=== PATIENT | female | born 1990 | race Caucasian/White ===

== ENCOUNTER 2017-01-29 18:09 | Inpatient (IN) | payer MEDICAID ==
[~2017-01-29] VITALS: Ht 165.1 cm; Wt 80.3 kg
[2017-01-29 18:34] VITALS: BP 114/57; PULSE 88; RESP 18
[2017-01-29 18:35] VITALS: Ht 165.1 cm; Wt 80.3 kg
--- NOTE | 2017-01-29 19:45 | RADRPT ---
PROCEDURE: OB ultrasound for biophysical profile CLINICAL INDICATION: well-being. Possible oligohydramnios TECHNIQUE: Multiple sonographic images of the gravid uterus performed. The images were reviewed on a PACS workstation. COMPARISON: None FINDINGS: A single live intrauterine is identified with heart rate of 141 bpm. Fet us is in a cephalic presentation. Placenta is located anterior. Biophysical profile: breathing movement = 2/2 tone = 2/2 motion = 2/2 TREVER = 0/2 TREVER = 3.8 cm. IMPRESSION: 1. Single live intrauterine gestation. 2. Biophysical profile = 6/8 due to relatively low amount of amniotic fluid. 3. TREVER = 3.8 cm which is consistent with oligohydramnios.. RPTAT: HMVK .Chang Wasserman MD, MD Date Time Electronically viewed and signed by .Chang Wasserman MD, MD on 01/29/2017 19:44 .K/
--- NOTE | 2017-01-29 21:11 | PN ---
Date/Time of Note Date/Time of Note DATE: 01/29/17 TIME: 20:47 OB Subjective Subjective Subjective 26 yo P0@35.6 wks who was sent with a note from Dr. Romero with oligo Patient has no complaints; good FM, no VB, no LOF, no ctx OB Objective Objective Objective VS WNL Abdomen- gravid, n/t FHT- Cat I [place]- no ctx Abdomen: WNL Accelerations: Accelerations Present Decelerations: No Decelerations Varibility: Moderate Contractions on Admission: None OB Assessment/Plan Other Assessment: 26 yo, r/o ROM, with oligo - reassuring status Other plan: awaiting ROM + result - if pos and patient is PPROM, will induce labor - if neg, will admit to 2 NE and patient to be evaluated by Dr. Romero in the morning. VLADIMIR GALE MD Jan 29, 2017 21:08
[2017-01-29] MEDS ORDERED: PNV91TAB3 PO (22:05)
[2017-01-29] MEDS ORDERED: FOLI0.4T2 PO (22:05)
[2017-01-29] MEDS ORDERED: FER325 PO (22:06)
[2017-01-29] MEDS ORDERED: CALC600T11 PO (22:06)
[2017-01-29] MEDS: LACTATED RINGER'S 1,000 ML IV SCH ×2 (22:21→23:07)
--- NOTE | 2017-01-29 22:49 | TRIAGE ---
OB Triage Datetime Report Generated by CPN: 01/29/2017 22:48 Datetime: 01/29/2017 22:20 Stage of : OB Triage Datetime: 01/29/2017 22:18 Stage of : OB Triage Datetime: 01/29/2017 22:08 Stage of : OB Triage Datetime: 01/29/2017 22:06 Stage of : OB Triage Datetime: 01/29/2017 21:58 Stage of : OB Triage Datetime: 01/29/2017 21:52 Stage of : OB Triage Datetime: 01/29/2017 21:30 Stage of : OB Triage Labor Evaluation Frequency: 0 Monitor Mode: External Pattern: Normal: <= 5 Contractions in 10 Minutes Resting Tone [place]: Relaxed Heart Rate FHR Baseline Rate: 125 Monitor Mode: External US Variability: Moderate 6-25 bpm Accelerations: 15X15 Decelerations: None Category: Category I Pain Assessment Pain Presence: None/Denies Datetime: 01/29/2017 21:25 Vaginal Exam Membrane Status: Intact Datetime: 01/29/2017 20:38 Stage of : OB Triage Datetime: 01/29/2017 20:35 Stage of : OB Triage Datetime: 01/29/2017 20:30 Stage of : OB Triage Labor Evaluation Frequency: 0 (Annotations: UTERINE IRRITABILITY NOED ) Monitor Mode: External Pattern: Normal: <= 5 Contractions in 10 Minutes Resting Tone [place]: Relaxed Heart Rate FHR Baseline Rate: 125 Monitor Mode: External US Variability: Moderate 6-25 bpm Accelerations: 15X15 Decelerations: None Category: Category I Pain Assessment Pain Presence: None/Denies Datetime: 01/29/2017 20:06 Stage of : OB Triage Datetime: 01/29/2017 20:00 Stage of : OB Triage Datetime: 01/29/2017 19:30 Stage of : OB Triage Labor Evaluation Frequency: 0 Monitor Mode: External Pattern: Normal: <= 5 Contractions in 10 Minutes Resting Tone [place]: Relaxed Heart Rate FHR Baseline Rate: 125 Monitor Mode: External US Variability: Moderate 6-25 bpm Accelerations: 15X15 Decelerations: None Category: Category I Pain Assessment Pain Presence: None/Denies Datetime: 01/29/2017 18:59 Labor Evaluation Frequency: 0 Monitor Mode: External Pattern: Normal: <= 5 Contractions in 10 Minutes Resting Tone [place]: Relaxed Heart Rate FHR Baseline Rate: 130 Monitor Mode: External US Variability: Moderate 6-25 bpm Accelerations: 15X15 Decelerations: None Category: Category I Pain Assessment Pain Presence: None/Denies Datetime: 01/29/2017 18:29 Assessment Type: Admission Assessment EGA: 35.6 Maternal Assessment Level of Consciousness: Fully Conscious DTR's/Clonus: DTRs 2+; No Clonus Headache: Denies Blurred Vision: No Respiratory Effort: Unlabored; Regular Rhythm; Equal Expansion Breath Sounds, Left: Clear and Equal Breath Sounds, Right: Clear and Equal Nausea/Vomiting: Denies RUQ Epigastric Pain: Denies Lower Extremities Edema: None Degree: None Upper Extremities Edema: None Degree: None Facial Edema: None Fall Risk Assessment History of Falling: (0) No Secondary Diagnosis: (0) No Ambulatory Aid: (0) Bedrest/Nurse Assist IV Therapy: (0) No Gait: (0) Normal/Bedrest/Immobile Mental Status: (0) Oriented to Own Ability Fall Score: 0 Fall Risk Score Definition: No Risk: No action required Datetime: 01/29/2017 18:27 Time of Arrival: 01/29/2017 17:57 Arrived By: Ambulatory Arrived From: Dr. De La Cruz Chief Complaint: PRESCRIPTION FROM CLINIC FOR R/O OLIGOHYDRAMNIOS. SONO FOR BPP. Movement: Present Contractions: Denies/Absent Rupture of Membranes: Denies Vaginal Bleeding: None Vaginal Discharge: Denies Recent Sexual Intercouse: Denies Abdominal Trauma: Not Applicable Patient Complaints: None Time Provider Notified: 01/29/2017 20:06 Provider Notified: DELAD Initial Plan: V/S, TOCO- U/S. BPP Datetime: 01/29/2017 18:24 Pain Assessment Pain Presence: None/Denies Datetime: 01/29/2017 18:20 Stage of : OB Triage
[2017-01-30] MEDS: LACTATED RINGER'S 1,000 ML IV SCH ×2 (05:52→12:16)
--- NOTE | 2017-01-30 08:31 | RADRPT ---
PROCEDURE: OB ultrasound CLINICAL INDICATION: . OB ultrasound with fluid volume assessment. Oligohydramnios TECHNIQUE: Sonographic evaluation to assess the amniotic fluid volume was performed. Transabdomin al imaging of the gravid uterus was performed. COMPARISON: 01/29/2017 FINDINGS: The amniotic fluid index equals approximately 7.3 cm. heart rate: 122 Beats per minute. Presentation: Cephalic Placenta anterior IMPRESSION: Amniotic fluid index equals 7.3 cm, previously 3.8 cm. RPTAT: AADD .Aquiles Contreras MD, MD Date Time Electronically viewed and signed by .Aquiles Contreras MD, on 01/30/2017 08:30 .B/
--- NOTE | 2017-01-30 17:06 | PERINOTE ---
Date/Time of Note Date/Time of Note DATE: 01/30/17 TIME: 16:51 Assessment/Recommendations Other Assessments Oligohydramnios in the context of a lupus . Currently modified biophysical profile is reassuring. Prednisone and Azathioprine use. These drugs are concerning, but have not been clearly identified with human harm other than growth restriction. Recommendations: Would: Ultrasound for size and placental grade 24 hour urine for protein and creatinine clearance. Would consider all PIH labs as a baseline Initiate twice weekly NST/TREVER Refer the patient to a manager labor relations as her time of greatest risk for a lupus flare is in the post period OB Subjective Free Text/Dictaton Patient referred for oligohydramnios. The patient is also known to have lupus, currently treated with prednisone and azothiaprine. She denies recent flare. HD# 2 IUP @ 36W Complaints/Overnight events Patient received IV hydration overnight, increasing TREVER to 7.3 cm. 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
--- NOTE | 2017-01-30 21:03 | HP ---
DATE OF ADMISSION: 01/29/2017 HISTORY OF PRESENT ILLNESS: A 26-year-old female, 1, para 0, estimated date of delivery 05/2017, admitted due to oligohydramnios. The patient denies any leakage of fluid. PAST MEDICAL HISTORY: Lupus. PAST SURGICAL HISTORY: Abdominoplasty. ALLERGIES: PENICILLIN. FAMILY HISTORY: Noncontributory. COURSE: course significant for patient had care in [place] earlier in the . For the past 2 months, the patient has not had any care until this week when maki tiffany started to have care with [facility]. PHYSICAL EXAMINATION: VITAL SIGNS: The patient is afebrile. Vital signs stable. HEAD, NECK AND CHEST: Within normal limits. ABDOMEN: Soft, nontender and gravid. EXTREMITIES: Within normal limits. NEUROLOGIC: Within normal limits. Obstetric ultrasound revealed an amniotic fluid index of 3.8. IMPRESSION: at 35 weeks with oligohydramnios. PLAN: Admit, intravenous hydration, continuous monitoring and repeat amniotic fluid index on 2016. Perinatology consultation. Dictated By: JACKY COPELAND/DIMITRY Conf#: [id number] DID#: [id number]
--- NOTE | 2017-01-31 06:23 | DS ---
DATE OF ADMISSION: 01/29/2017 DATE OF DISCHARGE: 01/30/2017 ADMITTING DIAGNOSIS: at 35 weeks with oligohydramnios. HISTORY: A 26-year-old female 1, para 0, at 35 weeks' gestation was admitted due to oligohy dramnios with amniotic fluid index of 3.8. The patient was given intravenous hydration and continuo us monitoring was done, repeat amniotic fluid index on 01/30/2017 is 7.3. Perinatology consultation was obtained. The patient was evaluated by perinatologist and recommendation was to discharge the patient. The patient is to have a followup in perinatology clinic on 02/03/2017. CONDITION ON DISCHARGE: Stable. DISCHARGE INSTRUCTIONS: Diet regular. Activities as tolerated. MEDICATIONS: Continue with vitamins and lupus medications as before. FOLLOW UP: Follow up in perinatology clinic on 02/03/2017. Follow up in [facility] on 02/05/2017. FINAL DIAGNOSES: 1. , not delivered. 2. Oligohydramnios. Dictated By: JACKY COPELAND/NTS Conf#: [id number] DID#: [id number]
== END 2017-01-30 19:15 | disposition home or self-care (01) | DRG 782 ==
LOC: OBT 18:09 → L-D 18:11 → OBG 22:40 → OBT 22:40
PROVIDERS: ADMIT Obstetrics & Gynecology; ATTEND Obstetrics & Gynecology
DX: O41.03X0 Oligohydramnios, third trimester, not applicable or unspecified (principal); Z3A.35 35 weeks gestation of pregnancy
CPT/HCPCS: 76815; 76818; 84112; G0463; J7120

== ENCOUNTER 2017-02-05 17:12 | Inpatient (IN) | payer MEDICAID ==
[~2017-02-05] VITALS: Ht 167.6 cm; Wt 82.0 kg
[~2017-02-05 17:12] MED LIST: CALC600T11 PO; FER325 PO; FOLI0.4T2 PO; PNV91TAB3 PO
[2017-02-05 17:40] VITALS: Ht 167.6 cm; Wt 82.0 kg
[2017-02-05 17:41] VITALS: BP 114/56; PULSE 93; RESP 18
--- NOTE | 2017-02-05 18:29 | RADRPT ---
PROCEDURE: US OB biophysical profile. CLINICAL INDICATION: Hydramnios TECHNIQUE: Multiple sonographic images of the pelvis were obtained. The images were reviewed on a PACS workstation. COMPARISON: Obstetrical ultrasound from 01/30/2017 FINDINGS: There is a single viable intrauterine gestation. Cardiac activity is present with 121 beats per min haley. There is a vertex presentation. The placenta is anterior. There is no evidence of placental abruption. There is a low amount of amniotic fluid with an TREVER = 4.6 cm. Biophysical profile: movement 2/2 tone 2/2. breathing 2/2 TREVER 0/2 Total 6/8 RPTAT: AA . IMPRESSION: Biophysical profile score of 6/8 due to a low amniotic fluid index of 4.6 cm, compared with an amnio tic fluid index of 7.3 cm on the most recent prior ultrasound study from 01/30/2017. Physician Gema Date Time Electronically viewed and signed by Physician Gema on 02/05/2017 18:28 /
[2017-02-05] MEDS ORDERED: LACTATED RINGER'S 1,000 ML IV ONE (19:00)
[2017-02-05] MEDS ORDERED: ACETAMINOPHEN 325 MG TAB PO PRN (19:00)
--- NOTE | 2017-02-05 19:06 | TRIAGE ---
OB Triage Datetime Report Generated by CPN: 02/05/2017 19:06 Datetime: 02/05/2017 18:05 Labor Evaluation Frequency: X1 Monitor Mode: External Duration (sec)2399: 60 Quality: Mild Pattern: Normal: <= 5 Contractions in 10 Minutes Resting Tone [place]: Relaxed Heart Rate FHR Baseline Rate: 125 Monitor Mode: External US FHR Baseline Changes: No Baseline Change Variability: Moderate 6-25 bpm Accelerations: 15X15 Decelerations: None Category: Category I Datetime: 02/05/2017 17:32 Stage of : OB Triage Maternal Assessment Level of Consciousness: Fully Conscious DTR's/Clonus: DTRs 2+; No Clonus Headache: Denies Blurred Vision: No Respiratory Effort: Unlabored Breath Sounds, Left: Clear and Equal Breath Sounds, Right: Clear and Equal Nausea/Vomiting: Denies RUQ Epigastric Pain: Denies Facial Edema: None Labor Evaluation Frequency: 0 Monitor Mode: External Duration (sec)2399: 0 Resting Tone [place]: Relaxed Heart Rate FHR Baseline Rate: 125 Monitor Mode: External US FHR Baseline Changes: No Baseline Change Variability: Moderate 6-25 bpm Accelerations: 15X15 Decelerations: None Category: Category I Pain Assessment Pain Scale: 0 Pain Presence: None/Denies Pain Type: N/A Pain Goal: 0 Pain Relief Measures: Comfort Measures Vaginal Exam Membrane Status: Intact Datetime: 02/05/2017 17:25 Time of Arrival: 02/05/2017 17:08 EGA: 36.6 Arrived By: Ambulatory Arrived From: Home Chief Complaint: R/O LUPUS AND OLIGO Movement: Present Contractions: Denies/Absent Rupture of Membranes: Denies Vaginal Bleeding: None Vaginal Discharge: Denies Recent Sexual Intercouse: Denies Abdominal Trauma: Not Applicable Patient Complaints: None Time Provider Notified: 02/05/2017 17:27 Provider Notified: DELSHAD Datetime: 01/30/2017 18:47 Stage of : Antepartum Labor Evaluation Frequency: 0 Monitor Mode: External Resting Tone [place]: Relaxed Heart Rate FHR Baseline Rate: 125 Monitor Mode: External US FHR Baseline Changes: No Baseline Change Variability: Moderate 6-25 bpm Accelerations: 15X15 Decelerations: None Pain Assessment Pain Scale: 0 Pain Presence: None/Denies Pain Type: N/A Datetime: 01/30/2017 17:30 Labor Evaluation Frequency: 0 Monitor Mode: External Resting Tone [place]: Relaxed Heart Rate FHR Baseline Rate: 125 Monitor Mode: External US FHR Baseline Changes: No Baseline Change Variability: Moderate 6-25 bpm Accelerations: 15X15 Decelerations: None Category: Category I Pain Assessment Pain Scale: 0 Pain Presence: None/Denies Pain Type: N/A Datetime: 01/30/2017 16:30 Stage of : Antepartum Labor Evaluation Frequency: 0 Monitor Mode: External Resting Tone [place]: Relaxed Heart Rate FHR Baseline Rate: 130 Monitor Mode: External US Variability: Moderate 6-25 bpm Accelerations: 15X15 Decelerations: None Pain Assessment Pain Scale: 0 Pain Presence: None/Denies Pain Type: N/A Datetime: 01/30/2017 16:11 Temperature Route: Oral Datetime: 01/30/2017 15:30 Stage of : Antepartum Labor Evaluation Frequency: 0 Monitor Mode: External Resting Tone [place]: Relaxed Heart Rate FHR Baseline Rate: 130 Monitor Mode: External US Variability: Moderate 6-25 bpm Accelerations: 15X15 Decelerations: None Pain Assessment Pain Scale: 0 Pain Presence: None/Denies Pain Type: N/A Datetime: 01/30/2017 14:30 Stage of : Antepartum Labor Evaluation Frequency: 0 Monitor Mode: External Resting Tone [place]: Relaxed Heart Rate FHR Baseline Rate: 130 Monitor Mode: External US Variability: Moderate 6-25 bpm Accelerations: 15X15 Decelerations: None Pain Assessment Pain Scale: 0 Pain Presence: None/Denies Pain Type: N/A Datetime: 01/30/2017 13:30 Stage of : Antepartum Labor Evaluation Frequency: 0 Monitor Mode: External Resting Tone [place]: Relaxed Heart Rate FHR Baseline Rate: 130 Monitor Mode: External US Variability: Moderate 6-25 bpm Accelerations: 15X15 Decelerations: None Pain Assessment Pain Scale: 0 Pain Presence: None/Denies Pain Type: N/A Datetime: 01/30/2017 12:30 Stage of : Antepartum Labor Evaluation Frequency: 0 Monitor Mode: External Resting Tone [place]: Relaxed Heart Rate FHR Baseline Rate: 130 Monitor Mode: External US Variability: Moderate 6-25 bpm Accelerations: 15X15 Decelerations: None Pain Assessment Pain Scale: 0 Pain Presence: None/Denies Pain Type: N/A Datetime: 01/30/2017 12:10 Stage of : Antepartum Temperature Route: Oral Datetime: 01/30/2017 11:30 Monitor Mode: External Duration (sec)2399: 40-50 Quality: Mild Resting Tone [place]: Relaxed Heart Rate FHR Baseline Rate: 135 Monitor Mode: External US Variability: Moderate 6-25 bpm Accelerations: 15X15 Decelerations: None Pain Presence: None/Denies Pain Type: N/A Datetime: 01/30/2017 10:30 Monitor Mode: External Duration (sec)2399: 40-50 Quality: Mild Resting Tone [place]: Relaxed Heart Rate FHR Baseline Rate: 135 Monitor Mode: External US Variability: Moderate 6-25 bpm Accelerations: 15X15 Decelerations: None Pain Presence: None/Denies Pain Type: N/A Datetime: 01/30/2017 09:30 Monitor Mode: External Duration (sec)2399: 40-50 Quality: Mild Resting Tone [place]: Relaxed Heart Rate FHR Baseline Rate: 135 Monitor Mode: External US Variability: Moderate 6-25 bpm Accelerations: 15X15 Decelerations: None Pain Presence: None/Denies Pain Type: N/A Datetime: 01/30/2017 08:30 Labor Evaluation Frequency: x3 Monitor Mode: External Duration (sec)2399: 40-50 Quality: Mild Resting Tone [place]: Relaxed Heart Rate FHR Baseline Rate: 135 Monitor Mode: External US Variability: Moderate 6-25 bpm Accelerations: 15X15 Decelerations: None Pain Presence: None/Denies Pain Type: N/A Datetime: 01/30/2017 08:06 Assessment Type: Admission Assessment Maternal Assessment Level of Consciousness: Fully Conscious DTR's/Clonus: DTRs 2+; No Clonus Headache: Denies Blurred Vision: No Respiratory Effort: Unlabored; Regular Rhythm; Equal Expansion Breath Sounds, Left: Clear and Equal Breath Sounds, Right: Clear and Equal Nausea/Vomiting: Denies RUQ Epigastric Pain: Denies Lower Extremities Edema: None Degree: None Upper Extremities Edema: None Degree: None Facial Edema: None Temperature Route: Oral Fall Risk Assessment History of Falling: (0) No Secondary Diagnosis: (0) No Ambulatory Aid: (0) Bedrest/Nurse Assist IV Therapy: (0) No Gait: (0) Normal/Bedrest/Immobile Mental Status: (0) Oriented to Own Ability Fall Score: 0 Fall Risk Score Definition: No Risk: No action required Datetime: 01/30/2017 07:30 Labor Evaluation Frequency: x3 Monitor Mode: External Duration (sec)2399: 40-50 Quality: Mild Resting Tone [place]: Relaxed Heart Rate FHR Baseline Rate: 135 Monitor Mode: External US Variability: Moderate 6-25 bpm Accelerations: 15X15 Decelerations: None Pain Presence: None/Denies Pain Type: N/A Datetime: 01/30/2017 06:30 Labor Evaluation Frequency: x3 Monitor Mode: External Duration (sec)2399: 40-50 Quality: Mild Resting Tone [place]: Relaxed Contraction Comments: pt denies feeling any uc's. Heart Rate FHR Baseline Rate: 135 Monitor Mode: External US Variability: Moderate 6-25 bpm Accelerations: 15X15 Decelerations: None Category: Category I Pain Presence: None/Denies Pain Type: N/A Datetime: 01/30/2017 05:30 Labor Evaluation Frequency: x3 Monitor Mode: External Duration (sec)2399: 50-60 Quality: Mild Resting Tone [place]: Relaxed Heart Rate FHR Baseline Rate: 125 Monitor Mode: External US Variability: Moderate 6-25 bpm Accelerations: 15X15 Decelerations: None Category: Category I Pain Presence: None/Denies Pain Type: N/A Datetime: 01/30/2017 04:30 Labor Evaluation Frequency: x1 Monitor Mode: External Duration (sec)2399: 70 Quality: Mild Resting Tone [place]: Relaxed Heart Rate FHR Baseline Rate: 130 Monitor Mode: External US Variability: Moderate 6-25 bpm Accelerations: 15X15 Decelerations: None Category: Category I Pain Presence: None/Denies Pain Type: N/A Datetime: 01/30/2017 03:30 Labor Evaluation Frequency: 1 Monitor Mode: External Duration (sec)2399: 60 Quality: Mild Resting Tone [place]: Relaxed Heart Rate FHR Baseline Rate: 125 Monitor Mode: External US Variability: Moderate 6-25 bpm Accelerations: 15X15 Decelerations: None Category: Category I Pain Presence: None/Denies Pain Type: N/A Datetime: 01/30/2017 02:30 Labor Evaluation Frequency: x1 Monitor Mode: External Duration (sec)2399: 70 Quality: Mild Resting Tone [place]: Relaxed Heart Rate FHR Baseline Rate: 135 Variability: Moderate 6-25 bpm Comments: loc due to poly and maternal movements Pain Presence: None/Denies Pain Type: N/A Datetime: 01/30/2017 01:30 Labor Evaluation Frequency: 0 Monitor Mode: External Duration (sec)2399: denies Resting Tone [place]: Relaxed Heart Rate FHR Baseline Rate: 135 Monitor Mode: External US Variability: Moderate 6-25 bpm Accelerations: 15X15 Decelerations: None Category: Category I Comments: loc due to maternal movements. Pain Presence: None/Denies Pain Type: N/A Datetime: 01/30/2017 00:30 Labor Evaluation Frequency: 0 Monitor Mode: External Duration (sec)2399: denies Resting Tone [place]: Relaxed Heart Rate FHR Baseline Rate: 140 Monitor Mode: External US Variability: Moderate 6-25 bpm Accelerations: 15X15 Decelerations: None Category: Category I Comments: maternal heart rate detected. Datetime: 01/29/2017 23:30 Labor Evaluation Frequency: 0 Monitor Mode: External Duration (sec)2399: denies Resting Tone [place]: Relaxed Heart Rate FHR Baseline Rate: 135 Monitor Mode: External US Variability: Moderate 6-25 bpm Accelerations: 15X15 Decelerations: None Category: Category I Pain Presence: None/Denies Pain Type: N/A Datetime: 01/29/2017 22:35 Stage of : Antepartum Assessment Type: Admission Assessment Maternal Assessment Level of Consciousness: Fully Conscious DTR's/Clonus: DTRs 2+; No Clonus Headache: Denies Blurred Vision: No Respiratory Effort: Unlabored; Regular Rhythm; Equal Expansion Breath Sounds, Left: Clear and Equal Breath Sounds, Right: Clear and Equal Nausea/Vomiting: Denies RUQ Epigastric Pain: Denies Lower Extremities Edema: None Degree: None Upper Extremities Edema: None Degree: None Facial Edema: None Temperature Route: Oral Fall Risk Assessment History of Falling: (0) No Secondary Diagnosis: (0) No Ambulatory Aid: (0) Bedrest/Nurse Assist IV Therapy: (0) No Gait: (0) Normal/Bedrest/Immobile Mental Status: (0) Oriented to Own Ability Fall Score: 0 Fall Risk Score Definition: No Risk: No action required Pain Presence: None/Denies Pain Type: N/A Datetime: 01/29/2017 18:29 EGA: 35.6 Arrived By: Wheelchair Arrived From: Home Fall Score: 0 Fall Risk Score Definition: No Risk: No action required
[2017-02-05] MEDS ORDERED: LACTATED RINGER'S 1,000 ML IV SCH (19:23)
[2017-02-05] MEDS ORDERED: predniSONE 5 MG TAB PO ONE (19:30)
--- NOTE | 2017-02-05 20:03 | HP ---
DATE OF ADMISSION: 02/05/2017 HISTORY OF PRESENT ILLNESS: A 26-year-old female, 1, para 0, estimated date of delivery 05/2017 who is admitted due to oligohydramnios. Patient denies rupture of membranes. PAST MEDICAL HISTORY: Systemic lupus. ALLERGIES: PENICILLIN. FAMILY HISTORY: Noncontributory. PHYSICAL EXAMINATION VITAL SIGNS: The patient is afebrile. Vital signs stable. HEAD, NECK AND CHEST: Within normal limits. ABDOMEN: Soft, nontender and gravid. EXTREMITIES: Within normal limits. NEUROLOGIC: Within normal limits. OBSTETRIC ULTRASOUND: Gave an amniotic fluid index of 4.6. IMPRESSION: at 36 weeks with oligohydramnios. PLAN: Admit, continuous monitoring, intravenous hydration, repeat amniotic fluid index on 7. Dictated By: JACKY COPELAND/DIMITRY Conf#: [id number] DID#: [id number]
[2017-02-05] MEDS: LACTATED RINGER'S 1,000 ML IV SCH (20:49)
[2017-02-06] MEDS: LACTATED RINGER'S 1,000 ML IV SCH ×4 (03:36→22:11)
[2017-02-06] MEDS: FERROUS SULFATE (EC) 325 MG TAB PO SCH (09:12)
[2017-02-06] MEDS: MULTIVIT/MIN/FOLATE/IRON/PREN TAB PO SCH (09:13)
--- NOTE | 2017-02-06 11:43 | CONS ---
DATE OF ADMISSION: 02/05/2017 DATE OF CONSULTATION: 02/06/2017 The patient was sent for reason of oligohydramnios. She is a recent transfer from [place]. She had an ultrasound with us, which confirmed her dates and she is over 37 weeks . She has systemi c lupus erythematosus, for which she is taking 5 medications and therefore, delivery is recommended given oligohydramnios, gestational age and history of lupus, which will affect the placental functio n in general, which can cause oligohydramnios. Dictated By: ROYAL CREWS/DIMITRY Conf#: [id number] DID#: [id number]
--- NOTE | 2017-02-06 12:23 | RADRPT ---
PROCEDURE: Limited OB ultrasound CLINICAL INDICATION: Oligohydramnios TECHNIQUE: Sonographic evaluation to assess the TREVER was performed. Transabdominal imaging of the gravid uterus was performed. COMPARISON: Biophysical profile dated 02/05/2017 FINDINGS: There is a single live intrauterine with a heart rate of 136 bpm. position is cephalic. The placenta is anterior. The TREVER measures 9.0 cm. IMPRESSION: The TREVER measures 9.0 cm increased 4.6 cm on the prior examination. RPTAT: HH .Susan Cuevas MD, MD Date Time Electronically viewed and signed by .Susan Cuevas MD, on 02/06/2017 12:22 .G/
--- NOTE | 2017-02-06 14:38 | QN ---
Documentation Comment No complaint Afebrile VSS Strip Reactive Will induce labor per Perinatology. JACKY HIGUERA MD Feb 06, 2017 14:38
[2017-02-07] MEDS: LACTATED RINGER'S 1,000 ML IV SCH ×5 (04:54→22:24)
[2017-02-07 06:30] LABS: ADD SCAN DIFF NO
[2017-02-07 06:54] LABS: BASOPHILS % 0.3 % (0.0-2.0); EOSINOPHILS # 0.1 10^3/ul (0.0-0.5); EOSINOPHILS % 1.5 % (0.0-7.0); HEMATOCRIT 38.4 % (37.0-47.0); HEMOGLOBIN 13.1 g/dl (12.0-16.0); LYMPHOCYTES # 0.7 10^3/ul (0.8-2.9); LYMPHOCYTES % 10.4 % (15.0-51.0); MEAN CORPUSCULAR HEMOGLOBIN 32.3 pg (29.0-33.0); MEAN CORPUSCULAR HGB CONC 34.1 g/dl (32.0-37.0); MEAN CORPUSCULAR VOLUME 94.8 fl (82.0-101.0); MEAN PLATELET VOLUME 10.5 fl (7.4-10.4); MONOCYTE # 0.3 10^3/ul (0.3-0.9); MONOCYTES % 4.9 % (0.0-11.0); NEUTROPHIL # 5.4 10^3/ul (1.6-7.5); NEUTROPHILS % 79.9 % (39.0-77.0); PLATELET COUNT 231 10^3/UL (140-415); RED BLOOD COUNT 4.05 10^6/ul (4.20-5.40); RED CELL DISTRIBUTION WIDTH 14.1 % (11.5-14.5); WHITE BLOOD COUNT 6.7 10^3/ul (4.8-10.8)
[2017-02-07 06:58] LABS: INR 0.9; PROTIME 12.1 Sec (12.2-14.2); PT RATIO 0.9
[2017-02-07 06:59] LABS: PARTIAL THROMBOPLASTIN TIME 24.2 Sec (25.0-35.0)
[2017-02-07] MEDS: FERROUS SULFATE (EC) 325 MG TAB PO SCH (09:26)
[2017-02-07] MEDS: MULTIVIT/MIN/FOLATE/IRON/PREN TAB PO SCH (09:26)
[2017-02-07] MEDS ORDERED: LACTATED RINGER'S 1,000 ML IV PRN (14:24)
[2017-02-07] MEDS ORDERED: MISOPROSTOL 200 MCG TAB PR PRN (14:30)
[2017-02-07] MEDS ORDERED: OXYTOCIN 30 UNITS/LR 500 ML IV SCH ×2 (14:30)
[2017-02-07] MEDS ORDERED: IBUPROFEN 600 MG TAB PO PRN (14:30)
[2017-02-07] MEDS ORDERED: BUTORPHANOL 2 MG INJ IV PRN (14:30)
[2017-02-07] MEDS ORDERED: LIDOCAINE 1% (MPF) 30 ML INJ INJ PRN (14:30)
[2017-02-07] MEDS ORDERED: METHYLERGONOVINE 0.2 MG INJ IM PRN (14:30)
[2017-02-07] MEDS ORDERED: CARBOPROST 250 MCG INJ IM PRN (14:30)
[2017-02-07] MEDS ORDERED: OXYTOCIN 30 UNITS/LR 500 ML IV PRN (14:30)
[2017-02-07] MEDS: MISOPROSTOL 25 MCG CAPSULE PO SCH ×2 (15:53→21:09)
[2017-02-08] MEDS: LACTATED RINGER'S 1,000 ML IV SCH ×4 (00:10→17:30)
[2017-02-08] MEDS: MISOPROSTOL 25 MCG CAPSULE PO SCH ×5 (00:56→17:27)
[2017-02-09] MEDS ORDERED: DINOPROSTONE 10 MG VAG SUPP VAG ONE (01:00)
[2017-02-09] MEDS: LACTATED RINGER'S 1,000 ML IV SCH ×4 (03:05→23:36)
[2017-02-09] MEDS ORDERED: METHYLERGONOVINE 0.2 MG INJ ONE (07:00)
[2017-02-09] MEDS ORDERED: OXYTOCIN 30 UNITS/LR 500 ML IV PRN (18:30)
[2017-02-09] MEDS ORDERED: FENTAnyl 50 MCG/ML VIAL IV PRN ×2 (18:30)
[2017-02-09] MEDS ORDERED: HYDROmorphONE (0.2 MG/ML) 10ML SYG IV PRN ×2 (18:30)
[2017-02-09] MEDS ORDERED: CARBOPROST 250 MCG INJ IM PRN (18:30)
[2017-02-09] MEDS ORDERED: ONDANSETRON 4 MG INJ IV PRN (18:30)
[2017-02-09] MEDS ORDERED: METHYLERGONOVINE 0.2 MG INJ IM PRN (18:30)
[2017-02-09] MEDS ORDERED: morphine (1 MG/ML) 10ML SYRINGE IV PRN ×2 (18:30)
[2017-02-09] MEDS ORDERED: NALOXONE (0.4 MG/ML) INJ IV PRN (18:30)
[2017-02-09] MEDS ORDERED: DIPHENHYDRAMINE 50 MG INJ IV PRN (18:30)
[2017-02-09] MEDS ORDERED: METOCLOPRAMIDE 10 MG INJ IV PRN (18:30)
[2017-02-09] MEDS ORDERED: MEPERIDINE 25 MG INJ IV PRN (18:30)
[2017-02-09] MEDS ORDERED: MISOPROSTOL 200 MCG TAB PR PRN (18:30)
[2017-02-09] MEDS ORDERED: CLINDAMYCIN 900 MG/D5W (PMX) 50 ML IV SCH (18:30)
[2017-02-09] MEDS ORDERED: CITRIC ACID/NA CITRATE 30 ML CUP ONE (18:33)
[2017-02-09] MEDS ORDERED: CEFAZOLIN 2 GM/50 ML (PMX) 0 ML IVPB ONE (18:51)
--- NOTE | 2017-02-09 18:59 | QN ---
Documentation Comment Patient was given induction of labor per recommendation of Perinatology. Patient received Cytotec and Cervidil for induction of labor, lowever, patient' s cervix remains closed. Patient is for delivery by primary due to failed induction of labor. Risks, benefits and alternatives were explained to the patient. Patient stated she understood and gave informed consent for the procedure. JACKY HIGUERA MD Feb 09, 2017 18:59
[2017-02-09] MEDS ORDERED: CITRIC ACID/NA CITRATE 30 ML CUP PO ONE (19:00)
[2017-02-09] MEDS ORDERED: morphine SULFATE/PF (10 MG/10 ML) INJ ONE (19:08)
[2017-02-09] MEDS ORDERED: PHENYLephrine (100 MCG/ML) 5ML SYG ONE ×3 (19:08→20:01)
[2017-02-09] MEDS ORDERED: ONDANSETRON 4 MG INJ ONE (19:41)
[2017-02-09] MEDS ORDERED: FENTAnyl 50 MCG/ML VIAL ONE (19:46)
--- NOTE | 2017-02-09 20:40 | DELSUM ---
Delivery Summary A-C Datetime Report Generated by CPN: 02/09/2017 20:40 DELIVERY PERSONNEL Body Hanger: Don, Geraldine MATERNAL INFORMATION Delivery Anesthesia: Spinal Medications in Delivery: SEE ANESTHESIA Estimated Blood Loss (ml): 600 Placenta Cultured: No Maternal Complications: Other Other Maternal Complications: LUPUS LABOR SUMMARY EDC: 02/27/2017 00:00 No. Babies in Womb: 1 Attempted: No Labor Anesthesia: None LABOR INFORMATION Reason for Induction: Oligohydramnios; Other Cervical Ripening Agents: Cervidil Cervical Ripening Agents: Cervidil Cervical Ripening Agents: Cervidil Cervical Ripening Agents: Cytotec @ 50 Cervical Ripening Agents: Cytotec @ 50MCG Cervical Ripening Agents: Cytotec @ 50 Cervical Ripening Agents: Cytotec @ 50 Cervical Ripening Agents: Cytotec @ 50 Cervical Ripening Agents: Cytotec @ 50 Oxytocin: N/A Group B Beta Strep: Negative Antibiotics # of Doses: 1 Antibiotics Time of Last Dose: 02/09/2017 19:30 Steroids Given: None Reason Steroids Not Administered: Not Applicable MEMBRANES Membranes Rupture Method: Artificial Rupture of Membranes: 02/09/2017 19:37 Length of Rupture (hr): 0.03 Amniotic Fluid Color: Clear Amniotic Fluid Amount: Moderate STAGES OF LABOR Stage 3 hr: 0 Stage 3 min: 1 CSECTION DELIVERY Primary Indication: Failed Induction CSection Urgency: Elective CSection Incidence: Primary Labor: Labor Elective: Elective CSection Incision: Lower Uterine Transverse BABY A INFORMATION Infant Delivery Date/Time: 02/09/2017 19:39 Method of Delivery: Born in Route : No : N/A Forceps: N/A Vacuum Extraction: N/A Shoulder Dystocia : N/A SHOULDER DYSTOCIA BABY A Delivery Date/Time: 02/09/2017 19:39 PRESENTATION/POSITION BABY A Presentation: Cephalic Cephalic Presentation: Vertex Breech Presentation: N/A PLACENTA INFORMATION BABY A Placenta Delivery Time : 02/09/2017 19:40 Placenta Method of Delivery: Manual Removal Placenta Status: Delivered SCORES BABY A Heart Rate 1 min: >100 bpm Resp Effort 1 min: Good Cry Reflex Irritability 1 min: Cough/Sneeze/Pulls Away Muscle Tone 1 min: Active Motion Color 1 min: Body [place], Extremit Blue Resuscitation Effort 1 min: Tactile Stimulation SCORE 1 MIN: 9 Heart Rate 5 min: >100 bpm Resp Effort 5 min: Good Cry Reflex Irritability 5 min: Cough/Sneeze/Pulls Away Muscle Tone 5 min: Active Motion Color 5 min: Body [place], Extremit Blue Resuscitation Effort 5 min: Tactile Stimulation SCORE 5 MIN: 9 INFORMATION BABY A Gestational Age at Delivery: 37.3 Gestational Status: Early Term- 37- 38.6 Weeks Infant Outcome : Liveborn Infant Condition : Stable Sex: Male IDENTIFICATION/MEDS BABY A ID Band Number: [id number] ID Band Location: Right Leg; Left Arm Sensor Applied: Yes Sensor Number: [id number] Sensor Location : Cord Clamp Vitamin K Given : Not Given Erythromycin Given: Not Given WEIGHT/LENGTH BABY A Infant Birthweight (gm): 3040 Weight (lb): 6 Infant Weight (oz): 11 Length (in): 18.50 Length (cm): 46.99 CORD INFORMATION BABY A No. Cord Vessels: 3 Nuchal Cord : Around Neck x1, Loose Cord Blood Taken: Yes Infant Suction: Mouth; Nose ASSESSMENT BABY A Infant Complications: None Physical Findings at Delivery: Within Normal Limits Infant Respirations: Appears Normal Punch Press Feeder/ALS Called : No Care By: DIN RT/VICTORINO RN Transferred To: Remains with Mother
[2017-02-09 22:50] VITALS: BP 111/62; PULSE 75; RESP 19
[2017-02-09 23:30] VITALS: BP 112/62; PULSE 71; RESP 19
[2017-02-10] VITALS (8 sets, daily range): BP systolic 96–115; BP diastolic 48–66; PULSE 70–96; RESP 16–18
[2017-02-10] MEDS ORDERED: CARBOPROST 250 MCG INJ IM PRN
[2017-02-10] MEDS ORDERED: OXYTOCIN 30 UNITS/LR 500 ML IV PRN
[2017-02-10] MEDS ORDERED: OXYCODONE/ACETAMINOPHEN (5/325) TAB PO PRN
[2017-02-10] MEDS ORDERED: MISOPROSTOL 200 MCG TAB PR PRN
[2017-02-10] MEDS ORDERED: LANOLIN 7 GM TUBE TOP PRN
[2017-02-10] MEDS ORDERED: METHYLERGONOVINE 0.2 MG INJ IM PRN
[2017-02-10] MEDS: OXYTOCIN 30 UNITS/LR 500 ML IV SCH ×2 (01:22→04:52)
[2017-02-10] MEDS: KETOROLAC 30 MG INJ IV PRN ×2 (04:42→11:34)
[2017-02-10] MEDS: IBUPROFEN 800 MG TAB PO SCH ×3 (06:00→21:26)
[2017-02-10 07:32] LABS: ADD SCAN DIFF NO
[2017-02-10 07:56] LABS: BASOPHILS % 0.2 % (0.0-2.0); EOSINOPHILS # 0.1 10^3/ul (0.0-0.5); EOSINOPHILS % 0.6 % (0.0-7.0); HEMATOCRIT 35.8 % (37.0-47.0); HEMOGLOBIN 12.2 g/dl (12.0-16.0); LYMPHOCYTES # 0.7 10^3/ul (0.8-2.9); LYMPHOCYTES % 6.6 % (15.0-51.0); MEAN CORPUSCULAR HEMOGLOBIN 32.1 pg (29.0-33.0); MEAN CORPUSCULAR HGB CONC 34.1 g/dl (32.0-37.0); MEAN CORPUSCULAR VOLUME 94.2 fl (82.0-101.0); MEAN PLATELET VOLUME 10.5 fl (7.4-10.4); MONOCYTE # 0.4 10^3/ul (0.3-0.9); MONOCYTES % 4.2 % (0.0-11.0); NEUTROPHIL # 8.8 10^3/ul (1.6-7.5); NEUTROPHILS % 87.4 % (39.0-77.0); PLATELET COUNT 198 10^3/UL (140-415); RED CELL DISTRIBUTION WIDTH 13.7 % (11.5-14.5); WHITE BLOOD COUNT 10.1 10^3/ul (4.8-10.8)
--- NOTE | 2017-02-10 07:57 | OPR ---
DATE OF OPERATION: 02/09/2017 PREOPERATIVE DIAGNOSES: 1. at 37+ weeks with oligohydramnios. 2. Failed induction. POSTOPERATIVE DIAGNOSES: 1. at 37+ weeks with oligohydramnios. 2. Failed induction. OPERATION PERFORMED: Primary low transverse section. SURGEON: Jacky Higuera MD BINDERY MACHINE TENDER: Sindy Burch MD ANESTHESIA: Spinal. ANESTHESIOLOGIST: PROCEDURE: The patient was taken to the operating room and placed on the operating table. After successful spinal anesthesia was given, the patient was placed in supine position. The area was prepared and draped in the usual sterile fashion. Spinal anesthesia was tested and was satisfactory. Using a scalpel, a Pfannenstiel incision was made about 2 fingerbreadths above the symphysis pubis. The incision was carried to the fascia. The fascia was incised and extended bilaterally with Mohamud scissors. Two Kochers were used to separate the fascia from the muscle. The muscle was dissected down to peritoneum. The peritoneum was bluntly entered. Using scalpel, a small transverse incision was made in the lower segment of the uterus. Upon entering the uterine cavity, bandage scissors were inserted to extend the incision bilaterally, curved up. Baby was delivered from cephalic presentation after suctioning of clear amniotic fluid. They baby was handed off to the team in attendance. Apgars were 9 and 9. Placenta was delivered without difficulty. The uterus was closed with #1 Monocryl continuous locked. After assuring hemostasis, both ovaries and tubes were inspected; all looked normal. The peritoneal cavity was irrigated with warm saline. The peritoneum was closed with 2-0 Vicryl continuous. The fascia was closed with #1 Vicryl continuous in 2 segments. Subcutaneous tissue was reapproximated with 2-0 plain. The skin was closed with roni. ESTIMATED BLOOD LOSS: 600 mL. COMPLICATIONS: None. COUNTS: All counts were correct. Dictated By: JACKY HIGUERA MD GD/NTS Conf#: [id number] DID#: [id number] MTDD
[2017-02-10] MEDS: SENNA/DOCUSATE NA (8.6MG/50MG) TAB PO SCH ×2 (09:18→21:26)
[2017-02-10] MEDS: LACTATED RINGER'S 1,000 ML IV SCH (10:38)
--- NOTE | 2017-02-10 13:51 | QN ---
Documentation Comment No complaint Afebrile VSS Abdomen soft POD #1 Stable Ambulate Advance diet. JACKY HIGUERA MD Feb 10, 2017 13:51
[2017-02-10] MEDS ORDERED: IBUPROFEN 800 MG TAB PO SCH (14:00)
[2017-02-10] MEDS: OXYCODONE/ACETAMINOPHEN (5/325) TAB PO PRN (18:42)
[2017-02-11 04:05] VITALS: BP 96/48; PULSE 79; RESP 18
[2017-02-11] MEDS: IBUPROFEN 800 MG TAB PO SCH ×3 (05:38→21:50)
[2017-02-11 08:43] VITALS: BP 97/57; PULSE 90; RESP 18
[2017-02-11] MEDS: SENNA/DOCUSATE NA (8.6MG/50MG) TAB PO SCH ×2 (08:43→21:01)
[2017-02-11] MEDS: OXYCODONE/ACETAMINOPHEN (5/325) TAB PO PRN (08:43)
[2017-02-11] MEDS ORDERED: INFLUENZA VIRUS VACCINE 0.5 ML (DISPENSING) IM* ONE (09:00)
[2017-02-11] MEDS ORDERED: OXYCODONE/ACETAMINOPHEN (5/325) TAB PO PRN (12:00)
[2017-02-11 15:53] VITALS: BP 101/48; PULSE 80; RESP 18
--- NOTE | 2017-02-11 19:32 | DS ---
DATE OF ADMISSION: 02/05/2017 DATE OF DISCHARGE: 02/12/2017 ADMITTING DIAGNOSES: at 36 weeks with oligohydramnios. HISTORY: A 26-year-old female 1, para 0 at the time of admission, para 1 at time of dischar , was admitted due to oligohydramnios. The patient was given intravenous hydration. The patient was monitored. Recommendation of perinatologist was to deliver the patient at 37 weeks. The patien t had induction of labor at 37 weeks. However, there was no progress. On 02/09/2017, after obtaini ng informed consent, the patient underwent a primary low transverse section due to failed i nduction. The patient's operation was uncomplicated. Postoperatively, patient was given clear liqu id diet which was advanced to regular diet, which she tolerated well. The patient is discharged on postop day #3 after having had adequate bladder and bowel function. CONDITION ON DISCHARGE: Stable. DISCHARGE INSTRUCTIONS: DIET: Regular. ACTIVITIES: Pelvic rest and no strenuous activities. MEDICATIONS: 1. Motrin as needed for pain. 2. Continue with vitamins, ferrous sulfate. FOLLOWUP: In clinic in 1 week. FINAL DIAGNOSES: 1. Term , delivered by section. 2. Oligohydramnios. 3. Failed induction. 4. Mother with single liveborn. Dictated By: JACKY COPELAND/NTS Conf#: [id number] DID#: [id number]
[2017-02-11 19:45] VITALS: BP 100/55; PULSE 90; RESP 18
[2017-02-12 04:05] VITALS: BP 109/49; RESP 18
[2017-02-12] MEDS: IBUPROFEN 800 MG TAB PO SCH ×2 (06:02→13:22)
[2017-02-12 08:30] VITALS: BP 100/55; PULSE 84; RESP 18
[2017-02-12] MEDS ORDERED: DIPHTH/TET/ACEL PERTUSS (ADULT) 0.5 ML VIAL IM* ONE (09:00)
[2017-02-12] MEDS: SENNA/DOCUSATE NA (8.6MG/50MG) TAB PO SCH (09:04)
== END 2017-02-12 19:00 | disposition home or self-care (01) | DRG 765 ==
LOC: OBT 17:12 → L-D 17:12 → OBT 18:40 → L-D 18:40 → OBG 20:03 → L-D 02-07 14:09 → PP1 02-09 23:16
PROVIDERS: ADMIT Obstetrics & Gynecology; ATTEND Obstetrics & Gynecology
PROC: 3E0P7GC Introduction of Other Therapeutic Substance into Female Reproductive, Via Natural or Artificial Opening (ICD-10-PCS; 2017-02-06)
PROC: 10D00Z1 Extraction of Products of Conception, Low, Open Approach (ICD-10-PCS; principal; 2017-02-09 19:00)
DX: O61.0 Failed medical induction of labor (principal); O41.03X0 Oligohydramnios, third trimester, not applicable or unspecified; M32.9 Systemic lupus erythematosus, unspecified; Z3A.36 36 weeks gestation of pregnancy; Z37.0 Single live birth
CPT/HCPCS: 76816; 76818; 85025; 85610; 85730; 86592; 86850; 86900; 86901; 87340; 88307; 90715; 99464; G0463; J0690; J1885; J2210; J2274; J2370; J2405; J2590; J3010; J7120; J7512

== ENCOUNTER 2017-05-06 16:23 | Emergency (ER) | payer MEDICAID ==
[~2017-05-06] VITALS: Wt 70.0 kg
[2017-05-06] MEDS ORDERED: ACETAMINOPHEN 500 MG TAB PO STA (16:41)
--- NOTE | 2017-05-06 16:48 | ERD ---
ER Documentation Chief Complaint Date/Time DATE: 05/06/17 TIME: 16:47 Chief Complaint FEVER AND STUFFY NOSE. NO COUGH ONSET SINCE YESTERDAY. NO ST OR EAR PAIN HPI 27-year-old female with a history of lupus comes emergency room with fever that started this afternoon. Patient states she has also had burning with urination , right breast pain. She states that there is some blood when she urinates, and painful urination started yesterday. She also reports that she is breast- feeding, and complains of right medial breast pain and swelling and tenderness for the past 1 day. She denies URI symptoms. No vomiting, diarrhea, abdominal pain. ROS All systems reviewed and are negative except as per history of present illness. Medications Home Meds Active Scripts Ibuprofen* (Motrin*) 600 Mg Tab, 600 MG PO Q6, #30 TAB Prov:PAWAN KO PA-C 05/06/17 Sulfamethoxazole/Trimethoprim* (Bactrim Ds* Tablet) 1 Each Tablet, 1 TAB PO BID , #14 TAB Prov:PAWAN KO PA-C 05/06/17 Cephalexin* (Keflex*) 500 Mg Capsule, 500 MG PO QID for 7 Days, CAP Prov:PAWAN KO PA-C 05/06/17 Reported Medications Ferrous Sulfate* (Ferrous Sulfate*) 325 Mg Tabec, 325 MG PO DAILY, TAB 01/29/17 Calcium Carbonate* (Calcium Carbonate*) 600 MG Ca Tab, 600 MG PO, TAB 01/29/17 Folic Acid* (Folic Acid*) 0.4 Mg Tablet, 0.4 MG PO DAILY, TAB 01/29/17 Pnv95/Ferrous Fumarate/FA ( [place]) 1 Each Tablet, 1 EACH PO DAILY, #1 TAB 01/29/17 Allergies Allergies: Coded Allergies: Penicillins (Verified Allergy, Mild, RASH, 05/06/17) Physical Exam Vitals Vital Signs Date Time Temp Pulse Resp B/P Pulse Ox O2 Delivery O2 Flow Rate FiO2 05/06/17 16:31 102.6 102 21 119/58 98 Physical Exam General: Well-developed, well-nourished. The patient appears in no acute distress. HEENT: Head is normocephalic, atraumatic. No scleral icterus. Pupils are equal , round, and reactive. Oral mucous membranes are moist. No pharyngeal erythema. Neck: Supple. Nontender. Lungs: Clear to auscultation. Normal air movement. Heart: Regular rate and rhythm. S1 and S2 are normal. No murmurs, gallops, or rubs. Abdomen: Soft, nontender, nondistended. Bowel sounds are normoactive. Positive CVA tenderness right side Breasts: There is right medial breast tenderness, with erythema, no abscess or fluctuance. No masses. Extremities: No clubbing or cyanosis. Normal pulses. Moving extremities x 4. No weakness. Neurologic: Alert and oriented 3. No focal deficits. Skin: Normal turgor. No rash or lesions. Results 24 hrs Laboratory Tests Test 05/06/17 16:45 05/06/17 16:55 Urine Color LT. YELLOW Urine Clarity SLIGHTLY CLOUDY Urine pH 6.0 Urine Specific [place] 1.010 Urine Ketones NEGATIVE Urine Nitrite NEGATIVE Urine Bilirubin NEGATIVE Urine Urobilinogen 0.2 E.U./dL Urine Leukocyte Esterase 1+ Urine Microscopic RBC 0-2/HPF Urine Microscopic WBC 25-50/HPF Urine Squamous Epithelial Cells FEW Urine Hemoglobin TRACE Urine Glucose NEGATIVE% Urine Total Protein NEGATIVE Bedside Urine pH (LAB) 6.0 Bedside Urine Protein (LAB) Negative Bedside Urine Glucose (UA) Negative Bedside Urine Ketones (LAB) Negative Bedside Urine Blood Negative Bedside Urine Nitrite (LAB) Negative Bedside Urine Leukocyte Esterase (L 2+ Current Medications Medications (Trade) Dose Ordered Sig/Aleyda Route PRN Reason Start Time Stop Time Status Last Admin Dose Admin Acetaminophen (Tylenol Tab) 1,000 mg ONCE STAT PO 05/06/17 16:41 05/06/17 16:43 DC 05/06/17 16:53 Ibuprofen (Motrin) 600 mg ONCE ONCE PO 05/06/17 17:00 05/06/17 17:01 DC 05/06/17 16:53 Ceftriaxone Sodium (Rocephin) 1 gm ONCE ONCE IM 05/06/17 17:30 05/06/17 17:31 DC Lidocaine (Xylocaine 1% (Mdv) 20 ml) 2 ml ONCE ONCE IM 05/06/17 17:30 05/06/17 17:31 DC Lidocaine (Xylocaine 2% (Mdv) 20 ml) 20 ml ONCE ONCE INJ 05/06/17 17:30 05/06/17 17:31 DC Chest X-ray 1V Interpreted by me as well as radiologist: Soft Tissue: No acute abnormalities Bones: No acute abnormalities Mediastinum/Cardiac Silhouette/Lungs: No acute abnormalities Procedures/MDM ED course: Patient was given Tylenol and Motrin. She was given Rocephin 1 g IM with lidocaine. MDM: 27-year-old female comes in with a fever, she complains of painful urination, also comes in with mastitis that can explain her fever. I doubt sepsis. Urine shows 25-50 white blood cells initially treated for early pyelonephritis given her history of fever that began this afternoon. She also comes in with swelling and tenderness of the right breast, will be treated for mastitis. Patient at this time is nontoxic, and can appropriately be managed on outpatient basis. I have advised her to continue pumping on the right side, return for any worsening any symptoms. Departure Diagnosis: Primary Impression: UTI (urinary tract infection) Additional Impressions: Mastitis Fever Condition: Good PAWAN KO PA-C May 06, 2017 16:48
[2017-05-06 16:52] LABS: URINE BLOOD (Dip) POC Negative (NEGATIVE)
[2017-05-06 16:59] LABS: ADD UMIC YES; URINE BILIRUBIN (Dip) NEGATIVE (NEGATIVE); URINE BLOOD (Dip) TRACE (NEGATIVE); URINE COLOR LT. YELLOW (YELLOW); URINE GLUCOSE (Dip) NEGATIVE (NEGATIVE); URINE KETONES (Dip) NEGATIVE (NEGATIVE); URINE LEUKOCYTE ESTERASE (Dip) 1+ (NEGATIVE); URINE NITRITE (Dip) NEGATIVE (NEGATIVE); URINE TOTAL PROTEIN (Dip) NEGATIVE (NEGATIVE); URINE UROBILINOGEN (Dip) 0.2 E.U./dL (0.1-1.0)
[2017-05-06] MEDS ORDERED: IBUPROFEN 600 MG TAB PO ONE (17:00)
--- NOTE | 2017-05-06 17:05 | RADRPT ---
PROCEDURE: XR Chest. CLINICAL INDICATION: Fever TECHNIQUE: Chest PA. COMPARISON: No comparison available. FINDINGS: The mediastinal structures are unremarkable. The heart is normal in size and configuration. The pu lmonary vascularity is normal. The lung asif are unremarkable. No consolidation is identified. The pleural spaces are unremarkable. The axial skeleton is unremarkable. IMPRESSION: No active intrathoracic disease. RPTAT: HGDB .Saulo Garcia MD, MD Date Time Electronically viewed and signed by .Saulo Garcia MD, on 05/06/2017 17:05 .B/
[2017-05-06 17:13] LABS: SQUAMOUS EPITHELIAL CELL,UR FEW; URINE RBCS 0-2 /HPF (0)
[2017-05-06] MEDS ORDERED: IBUP-1542 PO (17:25)
[2017-05-06] MEDS ORDERED: SULF1TAB31 PO (17:25)
[2017-05-06] MEDS ORDERED: CEPH-443 PO (17:25)
[2017-05-06] MEDS ORDERED: CEFTRIAXONE 1 GM INJ IM ONE (17:30)
[2017-05-06] MEDS ORDERED: LIDOCAINE 1% (MDV) 20 ML INJ IM ONE (17:30)
[2017-05-06] MEDS ORDERED: LIDOCAINE 2% (MDV) 20 ML INJ INJ ONE (17:30)
[2017-05-06 17:54] VITALS: TEMP 99.6
== END 2017-05-06 18:07 | disposition home or self-care (01) ==
LOC: FTE 16:23
DX: N39.0 Urinary tract infection, site not specified (principal); N61.0 Mastitis without abscess
CPT/HCPCS: 71010; 81001; J0696; Z7610; 81003; 96372